=== PATIENT | female | born 1990 | race Caucasian/White ===

== ENCOUNTER 2020-05-29 09:50 | Emergency (ER) | payer OTHER, SELFPAY ==
[2020-05-29 09:54] VITALS: BP 130/87; PULSE 60; RESP 15; TEMP 36.8; O2SAT 98; BMI 44.8
[2020-05-29 09:59] VITALS: PULSE 61; RESP 30; O2SAT 99
--- NOTE | 2020-05-29 09:59 | DI.RAD.S_ITS ---
PROCEDURE: XR CHEST 1V INDICATIONS: chest pain TECHNIQUE: One view of the chest was acquired. COMPARISON: None. FINDINGS: Surgical changes and devices: None. Lungs and pleura: Lungs are clear. No pleural effusions or pneumothorax. Mediastinum: Mediastinal contours appear normal. Heart size is normal. Bones and chest wall: No suspicious bony lesions. Overlying soft tissues appear unremarkable. IMPRESSION: No acute cardiopulmonary disease. Dictated by: Joselin Tuttle M.D. on 05/29/2020 at 10:29 Approved by: Joselin Tuttle M.D. on 05/29/2020 at 10:29
[2020-05-29 10:00] VITALS: BP 131/91
--- NOTE | 2020-05-29 10:07 | ED.CHESTPAIN ---
HPI - Chest Pain General Chief Complaint: Chest Pain Stated Complaint: Severe Chest Pain Time Seen by Provider: 05/29/20 09:59 Source: patient Mode of arrival: Ambulatory Limitations: no limitations History of Present Illness HPI narrative: Patient is a 30-year-old female with history of depression on fluoxetine presenting today with severe chest pain and vomiting. She states that she has been having some chest pain for about 4-5 days. Her PCP saw her 4 days ago and decreased her fluoxetine after a murmur was heard. The she has been having off and on contractions in her chest. She describes it as tightening lasting 2-3 minutes and releasing. Does not radiate anywhere she currently is chest pain-free. She has some shortness of breath during these episodes as well. Today day she went to the bathroom felt nauseous she grew up and urinated at the same time. There is no loss of consciousness. She denies any cough or fever. She did state she felt like wheezing in her chest. MD complaint: chest pain Duration: intermittent Pain location: substernal Severity: moderate Quality: tightness Relieving factors: nothing Exacerbating factors: nothing Related Data Allergies Allergy/AdvReac Type Severity Reaction Status Date / Time ear drops unknown Allergy Uncoded 05/29/20 09:59 Review of Systems Review of Systems Narrative: GENERAL: Denies chills, fatigue, malaise, fever, sweats, travel HEENT: Denies sinus pain, ear pain, sore throat, difficulty swallowing, neck pain RESPIRATORY: Denies dyspnea, cough, wheezing, hemoptysis, sputum. CARDIOVASCULAR: See HPI GASTROINTESTINAL: Denies nausea, vomiting, abdominal pain, diarrhea, constipation, melena. : Denies dysuria, frequency, incontinence, hematuria, urinary retention, flank pain. MUSCULOSKELETAL: Denies weakness, joint pain, or bony pain SKIN: No rash, no erythema, no pruritus NEUROLOGIC: Denies weakness, dizziness, headache, numbness, change in speech, confusion PSYCHIATRIC: No concerning psychosocial issues. 12 point review of systems is negative except for those stated above and HPI Patient History Medical History Depression Social History Smoking Status: Current every day smoker Smoking Status: Current every day smoker tobacco type: vaping alcohol intake frequency: holidays/special occasions only Substance Use Type: marijuana Exam Initial Vital Signs Initial Vital Signs: Vital Signs Temperature 98.3 F 05/29/20 09:54 Pulse Rate 60 05/29/20 09:54 Respiratory Rate 15 05/29/20 09:54 Blood Pressure 130/87 05/29/20 09:54 Pulse Oximetry 98 05/29/20 09:54 GENERAL: Well-appearing, well-nourished and in no acute distress. HEENT: Head atraumatic,EOMI, pupils reactive, face symmetric, moist mucous membranes CARDIOVASCULAR: Regular rate and rhythm without murmurs, rubs or gallops. RESPIRATORY: Breath sounds equal bilaterally, no wheezes rales or rhonchi. ABDOMEN: Soft, nontender. Normoactive bowel sounds all 4 quadrants. No guarding or rebound. EXTREMITIES: Normal range of motion, no clubbing or edema. Neurovascularly intact NEUROLOGICAL: Alert and oriented x4.Normal gait and speech. Cranial nerves II through XII grossly intact. SKIN: Warm, dry, no laceration, no petechiae, no rashes or lesions. Scores HEART Score Heart Score history: Slightly Suspicious Heart Score EKG: Normal Heart Score Age: < 45 years old Heart Score risk factors: No known risk factors Heart Score troponin: < or = to normal limit Heart Score Total: 0 PERC Score Age greater than or equal to 50 years: No Heart rate greater than or equal to 100 bpm: No Room Air O2 Sat less than 95%: No Unilateral leg swelling: No Recent trauma or surgery: No Hemoptysis: No Prior PE or DVT: No Hormone Use: No Total PERC Score: 0 Course Orders Ordered: ED Orders 05/29/20 09:58 Complete Blood Count AUTO DIFF Stat Comprehensive Metabolic Panel Stat D Dimer Stat Lipase Stat Partial Thromboplastin Time Stat Prothrombin Time INR Stat Troponin & CK Cardiac Panel Stat 05/29/20 09:59 XR chest 1V Stat EKG-12 Lead Stat Vital Signs Vital signs: Vital Signs - 8 hr 05/29/20 10:30 05/29/20 11:00 05/29/20 11:30 Pulse Rate 50 L 54 L Respiratory Rate 10 L 24 Blood Pressure 111/74 129/77 121/70 Pulse Oximetry 96 96 MDM - Chest Pain Lab Data Attestation: I reviewed the patient's lab results. Result diagrams: 05/29/20 09:58 05/29/20 09:58 Labs: Lab Results 05/29/20 05/29/20 05/29/20 Range/Units 09:58 09:58 09:58 WBC 10.1 (4.5-11.0) X10^3/uL RBC 4.70 (4.0-5.2) X10^6/uL Hgb 14.1 (12.0-16.0) g/dL Hct 41.1 (36-46) % MCV 87.5 (80-100) fL MCH 30.1 (26-34) PG MCHC 34.4 (30-36) % RDW 12.5 (11.6-14.8) % Plt Count 286 (150-400) X10^3/uL Neut % (Auto) 71.5 (50-75) % Lymph % (Auto) 20.6 L (25-40) % Howard % (Auto) 5.4 (3-14) % Eos % (Auto) 1.7 L (2-4) % Baso % (Auto) 0.8 (0-2) % Neut # (Auto) 7200 H (2890-3946) /uL Lymph # (Auto) 2100 (9568-6069) /uL Howard # (Auto) 500 (0-900) /uL Eos # (Auto) 200 (0-450) /uL Baso # (Auto) 100 (0-100) /uL PT 11.3 (10.1-12.7) SECONDS INR 1.0 (0.9-1.3) APTT 35 (26.4-36.2) SECONDS D-Dimer (<230) ng/mL Sodium 137 (137-145) mmol/L Potassium 4.2 (3.4-5.1) mmol/L Chloride 102 (98-107) mmol/L Carbon Dioxide 28 (22-32) mmol/L BUN 16 (7-17) mg/dL Creatinine 0.74 (0.52-1.04) mg/dL Estimated GFR > 60.0 (>60) mL/min BUN/Creatinine Ratio 21.6 (6-22) Glucose 97 (70-100) mg/dL Calcium 9.4 (8.4-10.2) mg/dL Total Bilirubin 0.9 (0.2-1.3) mg/dL AST 24 (14-36) IU/L ALT 35 H (<35) IU/L Alkaline Phosphatase 67 (38-126) U/L Total Creatine Kinase 39 (30-135) U/L CK-MB (CK-2) TNP CK-MB (CK-2) Rel Index TNP Troponin I < 0.012 (0.01-0.034) ng/mL Total Protein 8.1 (6.3-8.2) g/dL Albumin 4.6 (3.5-5.0) g/dL Globulin 3.5 (1.7-4.1) g/dL Albumin/Globulin Ratio 1.3 (1.0-2.8) Lipase 41 (23-300) U/L 05/29/20 Range/Units 09:58 WBC (4.5-11.0) X10^3/uL RBC (4.0-5.2) X10^6/uL Hgb (12.0-16.0) g/dL Hct (36-46) % MCV (80-100) fL MCH (26-34) PG MCHC (30-36) % RDW (11.6-14.8) % Plt Count (150-400) X10^3/uL Neut % (Auto) (50-75) % Lymph % (Auto) (25-40) % Howard % (Auto) (3-14) % Eos % (Auto) (2-4) % Baso % (Auto) (0-2) % Neut # (Auto) (0016-6320) /uL Lymph # (Auto) (2124-6811) /uL Howard # (Auto) (0-900) /uL Eos # (Auto) (0-450) /uL Baso # (Auto) (0-100) /uL PT (10.1-12.7) SECONDS INR (0.9-1.3) APTT (26.4-36.2) SECONDS D-Dimer < 200 (<230) ng/mL Sodium (137-145) mmol/L Potassium (3.4-5.1) mmol/L Chloride (98-107) mmol/L Carbon Dioxide (22-32) mmol/L BUN (7-17) mg/dL Creatinine (0.52-1.04) mg/dL Estimated GFR (>60) mL/min BUN/Creatinine Ratio (6-22) Glucose (70-100) mg/dL Calcium (8.4-10.2) mg/dL Total Bilirubin (0.2-1.3) mg/dL AST (14-36) IU/L ALT (<35) IU/L Alkaline Phosphatase (38-126) U/L Total Creatine Kinase (30-135) U/L CK-MB (CK-2) CK-MB (CK-2) Rel Index Troponin I (0.01-0.034) ng/mL Total Protein (6.3-8.2) g/dL Albumin (3.5-5.0) g/dL Globulin (1.7-4.1) g/dL Albumin/Globulin Ratio (1.0-2.8) Lipase (23-300) U/L Imaging Data Chest x-ray: Radiologist's Impression: PROCEDURE: XR CHEST 1V INDICATIONS: chest pain TECHNIQUE: One view of the chest was acquired. COMPARISON: None. FINDINGS: Surgical changes and devices: None. Lungs and pleura: Lungs are clear. No pleural effusions or pneumothorax. Mediastinum: Mediastinal contours appear normal. Heart size is normal. Bones and chest wall: No suspicious bony lesions. Overlying soft tissues appear unremarkable. IMPRESSION: No acute cardiopulmonary disease. Dictated by: Joselin Tuttle M.D. on 05/29/2020 at 10:29 ECG Data Attestation: I personally reviewed and interpreted this ECG as follows: Interpretation: Normal sinus rhythm rate 53 p.r. interval 150 QRS [address] changes no T-wave inversions MDM Narrative Medical decision making narrative: Fluoxetine can cause prolonged QT however patient does not have significantly elevated prolonged QT nothing greater than 500, and her dose has recently been decreased. Not sure if this is causing her palpitations or chest discomfort. D-dimer negative low risk for PE. I do not appreciate a murmur on exam. At this time recommend outpatient follow-up Discharge Plan Departure Patient Disposition: Home Clinical Impression: Atypical chest pain Instructions: DI for Atypical Chest Pain Activity Restrictions/Additional Instructions: *You have been diagnosed with atypical chest pain *What to do: Fluoxetine can cause decrease in heart rate. Currently your EKG and measurements are within normal limits. You may require further cardiac testing such as echocardiogram and/or stress test. Please continue to follow with her primary care provider in regards to fluoxetine dosing and further test *Continue to take medications as directed *Follow up with your primary care provider in 2-3 days *Return to ER if you should have increasing chest pain, shortness of breath or any new, worsening or concerning symptoms
[2020-05-29 10:22] LABS: Add Manual Diff / Slide Review NO; Basophils Absolute Auto 100 /uL (0-100); Basophils Percent Auto 0.8 % (0-2); Eosinophils Absolute Auto 200 /uL (0-450); Eosinophils Percent Auto 1.7 % (2-4); Hematocrit 41.1 % (36-46); Hemoglobin 14.1 g/dL (12.0-16.0); Lymphocytes Absolute Auto 2100 /uL (1100-4500); Lymphocytes Percent Auto 20.6 % (25-40); Mean Corpuscular HGB Conc 34.4 % (30-36); Mean Corpuscular Hemoglobin 30.1 PG (26-34); Mean Corpuscular Volume 87.5 fL (80-100); Monocytes Absolute Auto 500 /uL (0-900); Monocytes Percent Auto 5.4 % (3-14); Neutrophils Absolute Auto 7200 /uL (1500-7000); Neutrophils Percent Auto 71.5 % (50-75); Platelet Count 286 X10^3/uL (150-400); Red Cell Distribution Width 12.5 % (11.6-14.8); White Blood Cell Count 10.1 X10^3/uL (4.5-11.0)
[2020-05-29 10:30] VITALS: BP 111/74; PULSE 50; RESP 10; O2SAT 96
[2020-05-29 10:36] LABS: Prothrombin Time 11.3 SECONDS (10.1-12.7)
[2020-05-29 10:38] LABS: PTT Partial Thromboplastin Tim 35 SECONDS (26.4-36.2)
[2020-05-29 10:39] LABS: Alanine Aminotransferase 35 IU/L (<35); Albumin 4.6 g/dL (3.5-5.0); Albumin Globulin Ratio 1.3 (1.0-2.8); Alkaline Phosphatase 67 U/L (38-126); Aspartate Aminotransferase 24 IU/L (14-36); BUN Creatinine Ratio 21.6 (6-22); Bilirubin Total 0.9 mg/dL (0.2-1.3); Blood Urea Nitrogen 16 mg/dL (7-17); Calcium 9.4 mg/dL (8.4-10.2); Carbon Dioxide 28 mmol/L (22-32); Chloride 102 mmol/L (98-107); Creatine Kinase 39 U/L (30-135); Estimated Glomerular Filt Rate > 60.0 mL/min (>60); Globulin 3.5 g/dL (1.7-4.1); Glucose 97 mg/dL (70-100); HEMOLYSIS < 15 (0-50); Lipase 41 U/L (23-300); Potassium 4.2 mmol/L (3.4-5.1); Sodium 137 mmol/L (137-145); Total Protein 8.1 g/dL (6.3-8.2)
[2020-05-29 10:46] LABS: D Dimer < 200 ng/mL (<230)
[2020-05-29 10:49] LABS: Troponin I < 0.012 ng/mL (0.01-0.034)
[2020-05-29 11:00] VITALS: BP 129/77
[2020-05-29 11:30] VITALS: BP 121/70; PULSE 54; RESP 24; O2SAT 96
== END 2020-05-29 11:48 | disposition home or self-care (01) ==
PROVIDERS: Emergency Provider Emergency Medicine
DX: R07.89 Other chest pain (principal); R06.02 Shortness of breath; R11.2 Nausea with vomiting, unspecified
CPT/HCPCS: 36415; 71045; 80053; 82550; 83690; 84484; 85025; 85379; 85610; 85730; 93005; 99281; 99284